=== PATIENT | male | born 1945 | race Caucasian/White ===

== ENCOUNTER 2024-09-24 07:01 | Day surgery (SDC) | payer MEDICARE, MEDICAID ==
[~2024-09-24] VITALS: Ht 188 cm; Wt 87.2 kg
[~2024-09-24 07:01] MED LIST: ACET325T55 PO; BISA-155 PO; BISA10SU60 RC; FURO-150 PO; HYDR-3972 PO; LEVO125T PO; MAGN400O6 PO; MULT-1085 PO; NA P230E RC; POTA8TAB69 PO; TAMS-55 PO; TOP100T PO
[2024-09-24 07:23] VITALS: BP 121/51; PULSE 56; RESP 17
[2024-09-24] MEDS ORDERED: propofol inj 20 ML IV ONE (08:23)
[2024-09-24 09:05] VITALS: BP 105/35; PULSE 53; RESP 14; O2SAT 100
[2024-09-24 09:15] VITALS: BP 103/41; PULSE 56; RESP 15; O2SAT 100
[2024-09-24 09:25] VITALS: BP 114/34; PULSE 57; RESP 13; O2SAT 100
[2024-09-24 09:35] VITALS: BP 113/32; PULSE 52; RESP 15; O2SAT 100
--- NOTE | 2024-09-27 18:38 | PATHOLOGY REPORT ---
[facility] [address] [place] [address] SURGICAL PATHOLOGY REPORT CaseNumber: [id number] Surgeon:Herlinda Ellis NP CLINICAL INFORMATION CLINICAL INFORMATION: Positive Cologuard. DIAGNOSIS DIAGNOSIS: A.COLON, TRANSVERSE; BIOPSY - TUBULAR ADENOMA. DIAGNOSIS: B.COLON, ASCENDING; BIOPSY - TUBULAR ADENOMA. - SESSILE SERRATED LESION. DIAGNOSIS: C.COLON, RECTUM; BIOPSY - ADENOCARCINOMA. COMMENT NOTE: Dr. Alvin Alexander has reviewed part C and agrees with the interpretation. A MMR molecular panel is appended. NOTE: Dr. Alvin Alexander has reviewed part C and agrees with the interpretation. A MMR molecular panel is appended. NOTE: Dr. Alvin Alexander has reviewed part C and agrees with the interpretation. A MMR molecular panel is appended. MICROSCOPIC DESCRIPTION A. COLON, TRANSVERSE MICROSCOPIC DESCRIPTION: One slide from part A is examined. Perforrmed. B. COLON, ASCENDING MICROSCOPIC DESCRIPTION: One slide from part B is examined. Performed. C. COLON, RECTUM MICROSCOPIC DESCRIPTION: One slide from part C is examined. Present is colonic mucosa which contains adenocarcinoma. The adenocarcinoma grows predominantly as complex dysplastic glands haphazardly place d within altered fibroinflammatory stroma corresponding to a moderately differentiated appearance. So me wgr-sewah-extudvy groups are noted. (st) GROSS DESCRIPTION A. COLON, TRANSVERSE GROSS DESCRIPTION: Received in a container of formalin labeled with the patient's name, number, and " transverse colon polyp" is a 0.9 x 0.2 x 0.2 cm polypoid piece of juan tissue. The specimen is entirel y submitted as A1. The time at which the specimen was removed was 0953. The time at which the specime n was placed in formalin was 0955. B. COLON, ASCENDING GROSS DESCRIPTION: Received in a container of formalin labeled with the patient's name, number, and " ascending colon polyps" are 3 pieces of juan tissue 0.4 x 0.2 x 0.1-0.7 x 0.4 x 0.1 cm. The larger sp ecimen is bisected. The specimen is entirely submitted as B1. The time at which the specimen was violet [place] was 0940. The time at which the specimen was placed in formalin was 0945. C. COLON, RECTUM GROSS DESCRIPTION: Received in a container of formalin labeled with the patient's name, number, and " rectal mass BX" is a 0.6 x 0.4 x 0.2 cm aggregate of irregularly shaped pieces of juan tissue. The spe cimen is entirely submitted as C1. The time at which the specimen was removed was 09. The time at [facility] the specimen was placed in formalin was 09. SYNOPTIC REPORT SYNOPTIC TEXT: IMMUNOHISTOCHEMICAL (IHC) TESTING FOR MISMATCH REPAIR (MMR) PROTEINS (Block C1) ML H1: Intact nuclear expression (normal). MSH2: Intact nuclear expression (normal). MSH6: Intact nuclear expression (normal). PMS2: Intact nuclear expression (normal). CONCLUSION: Antibody clones utilized (Dako): MLH1: ES05; MSH2: FE11; MSH6: EP49; PMS2: EP51 Detection system: EnVision FLEX detection kit Scoring system: Intact nuclear expression: Unequivocal nuclear staining in viable tumor cells, in t he presence of acceptable internal positive controls (nuclear staining in lymphocytes, fibroblasts or normal epithelium in the vicinity of the tumor). Loss of nuclear expression: Unequivocal loss of nuc lear staining or focal weak equivocal nuclear staining in the viable tumor cells in the presence of i nternal positive controls Comment: The use of diagnostic immunohistochemical stains is standard in most laboratories, thoug h some antibodies are still under consideration by the Food and Drug Administration. Only formalin fi xed paraffin embedded sections are utilized for testing purposes. The antibodies used in this study h ave been tested and shown to be effective in our Laboratory. Background nonneoplastic tissue with in tact nuclear expression is present for internal control purposes. Electronically signed by: Colt Esquivel M.D. 09/27/2024 6:08:00 PM
== END 2024-09-24 09:58 ==
LOC: GI LAB 07:01
PROVIDERS: ATTEND Internal Medicine Gastroenterology
DX: R19.5 Other fecal abnormalities (principal); D12.3 Benign neoplasm of transverse colon; D12.2 Benign neoplasm of ascending colon; C20 Malignant neoplasm of rectum; F03.90 Unspecified dementia, unspecified severity, without behavioral disturbance, psychotic disturbance, mood disturbance, and anxiety; Z86.73 Personal history of transient ischemic attack (TIA), and cerebral infarction without residual deficits; Z88.2 Allergy status to sulfonamides; Z88.6 Allergy status to analgesic agent; K21.9 Gastro-esophageal reflux disease without esophagitis; E03.9 Hypothyroidism, unspecified; Z98.890 Other specified postprocedural states; Z85.118 Personal history of other malignant neoplasm of bronchus and lung; Z85.05 Personal history of malignant neoplasm of liver
CPT/HCPCS: 45380; 45385; A4620; C1889; J2704; J7030; Z7512; 43239; 43251